=== PATIENT | female | born 1965 | race Caucasian/White ===

== ENCOUNTER → 2022-02-13 | Outpatient (CLI) | payer OTHER, SELFPAY ==
--- NOTE | 2022-02-13 | IMM_PTH ---
PATIENT: CHITO ENCINAS LOC: [facility] U#:[id number] AGE/SX: 56/F ROOM: RE02/13/[address]: Dr. Jennifer Perez DO : 1965 BED: DIS: 02/13/2022 SPEC #: [id number] RECD: 02/17/22 13:09 STATUS: LAYLA REVeda #: [id number] UCHE: 02/13/22 00:[address]: Jennifer Perez DEPT: IMMUNOHISTOCHEMISTRY RECD BY: Heather Monroy ENTERED: 02/17/22 13:10 SP TYPE: IMMUNO OTHR DR: No Primary Care Phys Tissues: A - Uterine cervix, NOS B - Endocervical Procedures: p16 (initial) KI-67 (add) PHYSICIAN & INSTITUTION [place] [id number] SPECIMEN INFORMATION: Tissue Source: A ? 2 o?clock, B - [facility] Clinical Info: ASCUS, HPV positive Specimen Number: [id number] A & B CPT code: 13160 x2, 66408 x2 METHODOLOGY: Deparaffinized sections of prefer/formalin-fixed tissue or PAP/DQ stained slides are incubated with monoclonal/polyclonal antibodies/oligonucleotide probes. Localization is made via biotin free immunoperoxidase method. Appropriate controls are performed and reacted as expected. Results on target cell population are indicated in the following table: RESULTS: ANTIBODY / CLONE RESULT Block A P16 (E6H4) positive, focal patchy staining Ki-67 (30-9) positive, very low Block B P16 (E6H4) positive, focal patchy staining Ki-67 (30-9) positive, very low These tests were developed and their performance characteristics determined by [facility]. They may not have been cleared or approved by the [place]. Food and Drug Administration. The FDA has determined that such clearance or approval is not necessary. The above immunohistochemical/dualISH markers are ordered and reviewed by the Pathologist. INTERPRETATION: A. Cervix at 2 o?clock, biopsy: Focal minimal changes suspicious for HPV cytopathic effects. B. Endocervical curettings: Focal minimal changes suspicious for HPV cytopathic effects. SJ:crystal 02/17/2022 Case has been reviewed in consultation with Dr. Killian who concurs with the above diagnosis. IDC:AM
--- NOTE | 2022-02-13 15:15 | CER_PTH ---
PATIENT: CHITO ECNINAS LOC: [facility] U#:[id number] AGE/SX: 56/F ROOM: RE02/13/[address]: Dr. Jennifer Perez DO : 1965 BED: DIS: 02/13/2022 SPEC #: [id number] RECD: 02/13/22 16:06 STATUS: LAYLA ADIS #: [id number] UCHE: 02/13/22 15:[address]: Jennifer Perez DEPT: SURGICAL PATHOLOGY RECD BY: Natalie Martins ENTERED: 02/14/22 08:23 SP TYPE: CERV OTHR DR: Flora Primary Care Phys Tissues: A - Uterine cervix, NOS B - Endocervical Procedures: Surgery Specimen Level IV HEADER OPERATION: Colposcopy PRE-OP DIAGNOSIS: ASCUS, HPV positive TISSUE SUBMITTED: A ? 2 o?clock, B - ECC MICROSCOPIC DIAGNOSIS A. Cervix, 2 o?clock, biopsy: Fragments of squamous mucosa with focal minimal changes suspicious for HPV cytopathic effects. Focal mild chronic inflammation. See comment. B. Endocervical curettings: Scant fragments of squamous epithelium with focal minimal changes suspicious for HPV cytopathic effects. See comment. PAM:crystal 02/17/2022 COMMENT A & B. Immunohistochemistry ([id number]) for surrogate HPV marker (p16) supports the above diagnosis. This case has been reviewed in consultation with Dr. Killian who concurs with the above diagnosis. MICROSCOPIC DESCRIPTION Slides are reviewed. GROSS DESCRIPTION A - Received in fixative is one container labeled with the patient's name and designated cervix 2 o'clock biopsy. The specimen consists of two irregular fragments of light hernandez soft tissue that in aggregate measure 0.4 x 0.2 x 0.1 cm. The specimen is totally submitted in one cassette. B - Received in fixative is one container labeled with the patient's name and designated ECC. The specimen consists of a scant amount of soft tissue. The specimen is totally submitted for cell block preparation. / PAM:crystal 02/14/2022 TC:3 CPT: 17320 x2
== END | disposition home or self-care (01) ==
LOC: LABSPEC 16:13
PROVIDERS: Referring Provider Obstetrics & Gynecology; Visit Provider Obstetrics & Gynecology
DX: R87.810 Cervical high risk human papillomavirus (HPV) DNA test positive (principal); R87.610 Atypical squamous cells of undetermined significance on cytologic smear of cervix (ASC-US)
CPT/HCPCS: 88305; 88341; 88342

== ENCOUNTER → 2023-01-30 | Outpatient (CLI) | payer OTHER, SELFPAY ==
[2023-02-05 17:07] LABS: HPV APTIMA, High Risk Negative (Negative)
== END | disposition home or self-care (01) ==
LOC: LABSPEC 12:27
PROVIDERS: Visit Provider Obstetrics & Gynecology
DX: Z12.4 Encounter for screening for malignant neoplasm of cervix (principal)
CPT/HCPCS: 87624; 88175; G0145

== ENCOUNTER → 2024-02-09 | Outpatient (CLI) | payer OTHER, SELFPAY ==
[2024-02-15 16:09] LABS: HPV APTIMA, High Risk Negative (Negative)
== END | disposition home or self-care (01) ==
PROVIDERS: Referring Provider Obstetrics & Gynecology; Visit Provider Obstetrics & Gynecology
DX: Z12.4 Encounter for screening for malignant neoplasm of cervix (principal)
CPT/HCPCS: 87624; 88175; G0145

== ENCOUNTER → 2025-02-10 | Outpatient (CLI) | payer OTHER, MEDICAID, SELFPAY ==
[2025-02-16 20:08] LABS: HPV APTIMA, High Risk Negative (Negative)
== END | disposition home or self-care (01) ==
LOC: LABSPEC 16:26
PROVIDERS: Referring Provider Obstetrics & Gynecology; Visit Provider Obstetrics & Gynecology
DX: Z12.4 Encounter for screening for malignant neoplasm of cervix (principal); Z78.0 Asymptomatic menopausal state
CPT/HCPCS: 87624; 88175; G0145